=== PATIENT | male | born 1995 | race African-American/Black ===

== ENCOUNTER 2017-10-06 01:36 | Emergency (ER) | payer MEDICAID ==
[~2017-10-06] VITALS: Ht 190.5 cm; Wt 127.0 kg
[2017-10-06 01:57] VITALS: BP 125/62
[2017-10-06] MEDS ORDERED: IBUPROFEN 600MG TABLET PO ONE (03:45)
== END 2017-10-06 04:42 | disposition home or self-care (01) ==
LOC: ER 01:36
DX: J02.9 Acute pharyngitis, unspecified (principal); J45.909 Unspecified asthma, uncomplicated; R05 Cough
CPT/HCPCS: 99283

== ENCOUNTER 2018-04-03 10:13 | Emergency (ER) | payer MEDICAID ==
[~2018-04-03] VITALS: Ht 190.5 cm; Wt 127.0 kg
[2018-04-03] MEDS ORDERED: ONDANSETRON HCL 4MG TABLET PO ONE (11:00)
[2018-04-03 11:35] VITALS: BP 164/89
== END 2018-04-03 13:36 | disposition home or self-care (01) ==
LOC: ER 12:22
DX: R11.0 Nausea (principal); F17.200 Nicotine dependence, unspecified, uncomplicated; F12.10 Cannabis abuse, uncomplicated; Z98.890 Other specified postprocedural states
CPT/HCPCS: 99283; Q0162

== ENCOUNTER 2018-10-30 20:16 | Emergency (ER) | payer MEDICAID ==
[~2018-10-30] VITALS: Ht 190.5 cm; Wt 137.0 kg
[2018-10-30] MEDS ORDERED: IBUPROFEN 600MG TABLET PO NR (22:46)
[2018-10-30] MEDS ORDERED: KETOROLAC 60MG/2ML VIAL IM STA (22:49)
[2018-10-30] MEDS ORDERED: PENICILLIN G BENZATHINE 1,200,000 UNITS/2ML SYR IM NR (23:00)
[2018-10-30 23:10] VITALS: BP 160/80
== END 2018-10-31 00:17 | disposition home or self-care (01) ==
LOC: ER 20:16
DX: J02.9 Acute pharyngitis, unspecified (principal)
CPT/HCPCS: 96372; 99283; J0561; J1885

== ENCOUNTER 2019-06-27 08:17 | Emergency (ER) | payer MEDICAID ==
[~2019-06-27] VITALS: Ht 182.9 cm; Wt 135.0 kg
[2019-06-27] MEDS ORDERED: PEN G BENZ/PEN G PROCAINE CR 1.2 MMU/2 ML IM ONE (10:30)
[2019-06-27 10:56] VITALS: BP 145/85
== END 2019-06-27 10:58 | disposition home or self-care (01) ==
LOC: ER 08:17
DX: J02.0 Streptococcal pharyngitis (principal); J45.909 Unspecified asthma, uncomplicated; F12.10 Cannabis abuse, uncomplicated
CPT/HCPCS: 87430; 96372; 99283; J0558

== ENCOUNTER 2024-08-20 00:19 | Emergency (ER) | payer MEDICAID ==
[~2024-08-20] VITALS: Ht 185.4 cm; Wt 99.0 kg
[2024-08-20 00:25] VITALS: O2SAT 99
[2024-08-20 00:39] VITALS: BP 104/86; PULSE 76; RESP 18; TEMP 36.7; O2SAT 100
== END 2024-08-20 02:03 | disposition home or self-care (01) ==
LOC: ER 00:19
DX: S62.514A Nondisplaced fracture of proximal phalanx of right thumb, initial encounter for closed fracture (principal); J45.909 Unspecified asthma, uncomplicated; F10.90 Alcohol use, unspecified, uncomplicated; F12.90 Cannabis use, unspecified, uncomplicated; W19.XXXA Unspecified fall, initial encounter; Y93.89 Activity, other specified; Y92.89 Other specified places as the place of occurrence of the external cause; Y99.8 Other external cause status; Y90.9 Presence of alcohol in blood, level not specified
CPT/HCPCS: 29125; 73130; 99283; A6449

== ENCOUNTER 2025-01-18 18:10 | Emergency (ER) | payer MEDICAID ==
[~2025-01-18] VITALS: Ht 190.5 cm; Wt 127.0 kg
[2025-01-18 18:12] VITALS: BP 136/79; TEMP 36.9; O2SAT 99
[2025-01-18 18:13] VITALS: PULSE 66; RESP 18; O2SAT 100
[2025-01-18] MEDS: ACETAMINOPHEN 500MG TABLET PO ONE (19:09)
[2025-01-18] MEDS ORDERED: ACET-2708 MT (20:54)
[2025-01-18] MEDS ORDERED: LIDO-53 TP (20:56)
[2025-01-19] MEDS ORDERED: METH-653 MT (06:36)
== END 2025-01-18 21:09 | disposition home or self-care (01) ==
LOC: ER 18:10
DX: M54.9 Dorsalgia, unspecified (principal); J45.909 Unspecified asthma, uncomplicated; Z88.0 Allergy status to penicillin; Z88.6 Allergy status to analgesic agent
CPT/HCPCS: 99282

== ENCOUNTER 2025-01-19 05:46 | Emergency (ER) | payer MEDICAID ==
[~2025-01-19] VITALS: Ht 190.5 cm; Wt 127.0 kg
[~2025-01-19 05:46] MED LIST: ACET-2708 MT; LIDO-53 TP
[2025-01-19 05:50] VITALS: O2SAT 100
[2025-01-19 05:55] VITALS: BP 134/72; PULSE 50; RESP 18; TEMP 36.7; O2SAT 100
[2025-01-19] MEDS ORDERED: METH-653 MT (06:36)
[2025-01-19] MEDS ORDERED: DEXAMETHASONE 1MG TABLET PO ONE (06:45)
[2025-01-19 06:49] VITALS: TEMP 98
[2025-01-19] MEDS: DEXAMETHASONE 4MG TABLET PO NR (06:49)
[2025-01-19] MEDS: ACETAMINOPHEN 325MG TABLET PO ONE (06:49)
== END 2025-01-19 06:53 | disposition home or self-care (01) ==
LOC: ER 06:10
DX: M54.50 Low back pain, unspecified (principal); F12.90 Cannabis use, unspecified, uncomplicated; Z88.0 Allergy status to penicillin; Z88.6 Allergy status to analgesic agent
CPT/HCPCS: 99283; J8540